=== PATIENT | male | born 1980 | race Caucasian/White ===

== ENCOUNTER 2016-08-18 06:21 | Observation (INO) ==
[2016-08-18] MEDS ORDERED: ALBUTEROL/IPRATROPIUM 3 ML NEB RESP TX STA ×4 (06:43→08:21)
[2016-08-18 07:08] LABS: Basophils % 0.1 % (0.0-0.8); Eosinophils % 0.1 % (0.00-10.9); Hematocrit 46.3 VOL% (42.0-52.0); Hemoglobin 16.4 GM/DL (14.0-18.0); Immature Granulocytes % 0.2 %; Immature Granulocytes Absolute 0.02 #; Lymphocytes % 12.1 % (21.2-54.2); Mean Corpuscular HGB Conc 35.4 GM/DL (32-36); Mean Corpuscular Hemoglobin 32 PG (27-34); Mean Corpuscular Volume 89.4 FL (87-102); Mean Platelet Volume 9.6 FL (9.6-12.0); Neutrophils # 6.2 10*3/uL (1.4-7.4); Neutrophils % 75.5 % (38.7-73.9); Platelet Count 218 T/CUMM (130-400); Red Blood Count 5.18 MC/CUMM (3.8-5.5); Red Cell Distribution Width 12.3 % (9.3-17.3); White Blood Count 8.3 T/CUMM (4-12)
[2016-08-18 07:43] LABS: Albumin 4.3 G/DL (3.4-5.0); Bilirubin,Total 0.7 MG/DL (0.2-1.0); Calcium 9.3 MG/DL (8.5-10.1); Potassium 4.3 MMOL/L (3.5-5.1); Total Protein 7.7 G/DL (6.4-8.3)
--- NOTE | 2016-08-18 07:56 | XRay Report ---
XR chest 2V Date: 08/18/2016 6:43 AM History: Shortness of breath Comparison: None Technique: PA and lateral chest Findings: The heart is small and compressed by the over expanded lungs. Calcified granulomata/nodes with no acute osseous findings. Impression: The lungs are overexpanded which can be seen with deep inspiration, reactive airway disease, or COPD. PROCEDURE INTERPRETED AT [facility] DEPARTMENT OF RADIOLOGY Final Report Signed by: Dr. Renée Leyva
[2016-08-18] MEDS ORDERED: methylPREDNISolone SOD SUC 125 MG/2 ML VIAL IV STA (08:08)
[2016-08-18] MEDS ORDERED: amLODIPine 5 MG TABLET PO STA (08:08)
[2016-08-18] MEDS ORDERED: LEVOFLOXACIN INJ 500 MG in PREMIX 1 EACH IV STA (08:09)
[2016-08-18] MEDS ORDERED: amLODIPine 5 MG TABLET ONE (08:17)
[2016-08-18] MEDS ORDERED: LEVOFLOXACIN INJ 100 ML IV ONE (08:17)
[2016-08-18] MEDS ORDERED: methylPREDNISolone SOD SUC 125 MG/2 ML VIAL ONE (08:18)
--- NOTE | 2016-08-18 10:01 | EKG Report ---
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
--- NOTE | 2016-08-18 10:19 | Emergency Department Note ---
Sharon Camejo Brittany, am scribing for, and in the presence of, Deonte Garrido MD 06:52. Radhika Camejo Phillip K, MD, personally performed the services described in this documentation, ascribed by Mia Herrera in my presence, and it is both accurate and complete . Arrival - Arrival Chief Complaint: Shortness of Breath Stated Complaint: light chest pain,sob,vomiting ED Nursing Triage Note: pt presented to triage ambulatory with c/o SOB and pain with deep breathing x 2-3 hrs. also c/o fever and body aches x 3 days. audible wheezes noted. 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 He states for the past 2-3 hours he has been SOB and has had pain when breathing deep. He reports 3 days ago, he had a cough, chills and a fever. He states the cough is productive of clear/green/ and at times yellow sputum. Pt has no other complaints/pain in the ED at this time. Pt denies a PMHx. Pt denies a surgical hx. Pt denies a family medical Hx. Pt is a current every day smoker, drinks on occasional but denies the use of street drugs. Pt smokes 1.5 PPD. 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) Consistency: constant Severity: moderate Allergies/Adverse Reactions: Allergies Allergy/AdvReac Type Severity Reaction Status Date / Time No Known Allergies Allergy Unverified 08/18/16 06:37 Home Medications: Home Medications Medication Instructions Recorded Confirmed Type No Known Home Medications [No 08/18/16 08/18/16 History Known Home Medications] Review of System - Review of System 12 point system: reviewed and no additional remarkable complaints except as stated - Review of System Constitutional: Present: chills, fever, other (Body aches) Respiratory: Present: cough Cardiovascular: Present: dyspnea on exertion, other ("Pain with deep breathing" , per pt. ) Medical,Surgical,& Family Hx - Social History Smoking Status: Current every day smoker Frequency of Alcohol Use: Occasionally Type of Drug Use: None Exam Vital Signs: Vital Signs Temperature 98.3 F 08/18/16 06:28 Pulse Rate 111 H 08/18/16 07:10 Respiratory Rate 19 08/18/16 07:10 Blood Pressure 151/112 08/18/16 06:28 O2 Sat by Pulse Oximetry 96 08/18/16 07:10 - General General appearance: alert, in no apparent distress - Head Head exam: Present: atraumatic, normocephalic, normal inspection - Eye Eye exam: Present: normal appearance, PERRL, EOMI. Absent: nystagmus, miosis, mydriasis - ENT ENT exam: Present: normal exam, normal oropharynx, mucous membranes moist, TM's normal bilaterally, normal external ear exam - Neck Neck exam: Present: normal inspection, full ROM, trachea midline. Absent: tenderness, meningismus, lymphadenopathy, thyromegaly - Chest Chest inspection: Present: normal inspection, symmetric chest wall rise. Absent : tenderness, rash, abscess - Respiratory Respiratory exam: Present: wheezes (Inspiratory and Expiratory wheezing ). Absent: normal lung sounds bilaterally, rales, respiratory distress, rhonchi, stridor - Cardiovascular Cardiovascular exam: Present: normal rhythm, tachycardia, normal heart sounds. Absent: murmur, rubs, gallop, clicks, JVD - Abdominal Exam Abdominal exam: Present: soft, normal bowel sounds. Absent: distention, tenderness, guarding, rebound, rigidity - Rectal Exam Rectal exam: Present: deferred - Extremities Exam Extremities exam: Present: normal inspection, full ROM, normal capillary refill. Absent: tenderness, pedal edema, joint swelling, calf tenderness - Back Exam Back exam: Present: normal inspection, full ROM. Absent: tenderness, muscle spasm, rashes - Neurological Exam Neurological exam: Present: alert, oriented X3, CN II-XII intact. Absent: motor sensory deficit - Psychiatric Psychiatric exam: Present: normal affect, normal mood. Absent: depressed, agitated, anxious, flat affect, manic - Skin Skin exam: Present: warm, dry, intact, normal color. Absent: rash, cyanosis, diaphoresis, erythema, pallor, mottled Results - Labs CBC & BMP: 08/18/16 07:00 08/18/16 07:00 Lab Results: I have reviewed the patients labs Labs: Laboratory Tests 08/18/16 07:00 WBC 8.3 RBC 5.18 Hgb 16.4 Hct 46.3 MCV 89.4 MCH 32 MCHC 35.4 RDW 12.3 Plt Count 218 MPV 9.6 Neut % (Auto) 75.5 H Lymph % (Auto) 12.1 L [place] % (Auto) 12.0 Eos % (Auto) 0.1 Baso % (Auto) 0.1 Neut # (Auto) 6.2 Lymph # (Auto) 1.0 L [place] # (Auto) 1.0 H Eos # (Auto) 0.0 Baso # (Auto) 0.0 Immature Gran % 0.2 Nucleated RBC % 0.0 Immature Gran # 0.02 Nucleated RBCs # 0.00 Laboratory Tests 08/18/16 08/18/16 07:00 07:00 WBC 8.3 RBC 5.18 Hgb 16.4 Hct 46.3 MCV 89.4 MCH 32 MCHC 35.4 RDW 12.3 Plt Count 218 MPV 9.6 Neut % (Auto) 75.5 H Lymph % (Auto) 12.1 L [place] % (Auto) 12.0 Eos % (Auto) 0.1 Baso % (Auto) 0.1 Neut # (Auto) 6.2 Lymph # (Auto) 1.0 L [place] # (Auto) 1.0 H Eos # (Auto) 0.0 Baso # (Auto) 0.0 Immature Gran % 0.2 Nucleated RBC % 0.0 Immature Gran # 0.02 Nucleated RBCs # 0.00 Sodium 136 Potassium 4.3 Chloride 101 Carbon Dioxide 27 Anion Gap 12.3 BUN 14 Creatinine 1.20 GFR Calculation 123 BUN/Creatinine Ratio 11.00 Glucose 106 Calculated Osmolality 272.0 L Calcium 9.3 Total Bilirubin 0.70 AST 31 ALT 65 H Alkaline Phosphatase 90 Total Protein 7.7 Albumin 4.3 Globulin 3.4 Albumin/Globulin Ratio 1.2 Laboratory Tests 08/18/16 08/18/16 07:00 07:00 WBC 8.3 RBC 5.18 Hgb 16.4 Hct 46.3 MCV 89.4 MCH 32 MCHC 35.4 RDW 12.3 Plt Count 218 MPV 9.6 Neut % (Auto) 75.5 H Lymph % (Auto) 12.1 L [place] % (Auto) 12.0 Eos % (Auto) 0.1 Baso % (Auto) 0.1 Neut # (Auto) 6.2 Lymph # (Auto) 1.0 L [place] # (Auto) 1.0 H Eos # (Auto) 0.0 Baso # (Auto) 0.0 Immature Gran % 0.2 Nucleated RBC % 0.0 Immature Gran # 0.02 Nucleated RBCs # 0.00 Sodium 136 Potassium 4.3 Chloride 101 Carbon Dioxide 27 Anion Gap 12.3 BUN 14 Creatinine 1.20 GFR Calculation 123 BUN/Creatinine Ratio 11.00 Glucose 106 Calculated Osmolality 272.0 L Calcium 9.3 Total Bilirubin 0.70 AST 31 ALT 65 H Alkaline Phosphatase 90 Total Protein 7.7 Albumin 4.3 Globulin 3.4 Albumin/Globulin Ratio 1.2 - EKG EKG results: interpreted by ERMD (Sinus tachycardia) - Diagnostic Findings Procedure: Chest x-ray: report reviewed by me (The lungs are overexpanded which can be seen with deep inspiration, reactive airway disease, or COPD. )
--- NOTE | 2016-08-18 14:12 | Event Note ---
Mr. 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 Patient also has complaints of low-grade fever subjective in nature and muscle aches. Chest x-ray is clear. Labs are unremarkable. Will admit the patient to inpatient, obtain an influenza panel, place the patient on antibiotics and IV steroids. Will obtain a d-dimer to assess for the need for a CT of his chest if greater than 0.[address] obtain a CT of the chest with PE protocol. Will also ask pulmonary to evaluate the patient.
--- NOTE | 2016-08-18 14:27 | Hospitalist History & Physical ---
Assessment and Plan - Time spent with patient Time spent with patient: Greater than 30 minutes (1) Dyspnea Status: Acute Assessment and plan: Patient noted to be short of breath on admission. He was treated with 2 rounds of Solu-Medrol and Levaquin in the ED. Patient continues to have expiratory wheezing. Will admit for observation and continued breathing treatments. Obtain influenza panel and d-dimer. Current Visit: Yes Qualifiers: Dyspnea type: shortness of breath Qualified Code(s): R06.02 - Shortness of breath (2) Chest pain Status: Acute Assessment and plan: Chest pain not reproducible to palpation. Patient reports chest pain is worse on inspiration. This is likely secondary to pulmonary process. Patient has been admitted for observation with breathing treatments and IV antibiotics. Will continue to monitor overnight. 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 Patient states that he began to feel sick Thursday evening with cough productive of yellow and clear sputum. Patient states that he had been drinking water to keep from coughing and attributes to clear sputum to this water. Patient does note he smokes one and a half packs per day and drinks "occasionally" up to a 12 pack of beer at once. Patient states that he does not typically get sick and would not have come to the ER if not for the "sharp pain" in his chest this morning. He rates this pain 7/10 and is nonradiating. He states that he did not take any medications for this pain. He denies headache, blurry vision, palpitations, abdominal pain, nausea or vomiting , numbness or tingling. On admission, patient noted to be wheezing, complaining of chest pain on inspiration, and hypertensive. Lab work reveals: WBC 8.3, hemoglobin 16.4, hematocrit 46.3, sodium 136, potassium 4.3, chloride 101, BUN 14, creatinine 1.20. Chest x-ray was negative for any acute process. Patient was given 2 breathing treatments in the ER with continued wheezing. Given his history of tobaccoism and persistent wheezing, the patient will be admitted to hospital medicine service for observation and further treatment. Case has been discussed with Dr. Mccloud. Patient is a full code. Home meds have been reviewed. Home Medications Medication Instructions Recorded Confirmed Type No Known Home Medications [No 08/18/16 08/18/16 History Known Home Medications] Allergies Allergy/AdvReac Type Severity Reaction Status Date / Time No Known Allergies Allergy Unverified 08/18/16 06:37 Medical,Surgical,& Family Hx - Family History Family History: Reports;: Family Heart Disease (Father has CAD), Family Hypertension - Social History Smoking Status: Current every day smoker Have you smoked in the last 12 months: Yes Time spent discussing smoking cessation with patient: more than 10 minutes Frequency of Alcohol Use: Occasionally Type of Drug Use: None Marital Status: Single Lives With:: Significant Other Functional capacity: independent ambulation - Constitutional Constitutional: Absent: fever(s), frequent falls, headache(s), weakness - EENT Eyes: Absent: blurry vision, loss of vision Ears: Absent: decreased hearing, ear pain Nose, mouth and throat: Absent: headache(s), vertigo - Cardiovascular Cardiovascular: Present: chest pain at rest, dyspnea, dyspnea on exertion. Absent: diaphoresis, edema, palpitations - Respiratory Respiratory: Present: cough (Productive of yellow sputum), dyspnea, wheezing, pain on inspiration. Absent: hemoptysis - Gastrointestinal Gastrointestinal: Present: diarrhea. Absent: abdominal pain, melena, nausea - Genitourinary Genitourinary: Absent: dysuria, flank pain - Musculoskeletal Musculoskeletal: Absent: arthralgias, joint swelling - Neurological Neurological: Absent: abnormal gait, abnormal speech, dizziness, numbness - Psychiatric Psychiatric: Absent: anxiety, depression - Endocrine Endocrine: Absent: cold intolerance, fatigue, heat intolerance - Hematologic/Lymphatic Hematologic/Lymphatic: Absent: easy bleeding, easy bruising Exam - Constitutional Vitals: Period Temp Pulse Resp BP Sys/Schmidt Pulse Ox Last 24 Hr 98.3 F-100.4 F 73-111 16-22 142-156/86-114 94-96 Exam: General appearance: obese, no acute distress - Head Head exam: Present: normocephalic, atraumatic - Eye Eye exam: Present: EOMI. Absent: conjunctival injection, nystagmus Pupils: Present: SAUL, normal accommodation - ENT ENT exam: Present: normal exam, normal external ear exam - Neck Neck exam: Present: normal inspection. Absent: lymphadenopathy, tenderness, thyromegaly - Respiratory Respiratory exam: Present: Expiratory wheezing in left lung. Absent: rales, rhonchi - Cardiovascular Cardiovascular exam: Present: regular rate and rhythm. Absent: carotid bruit, gallop, rubs - GI/Abdominal GI/Abdominal exam: Present: normal bowel sounds. Absent: ascites, distended, mass - Extremities Exam Extremities exam: Present: normal inspection, normal capillary refill. Absent: edema - Back Exam Back exam: Absent: CVA tenderness (L), CVA tenderness (R) - Neurological Exam Neurological exam: Present: alert, oriented X3 - Psychiatric Psychiatric exam: Present: normal affect, normal mood - Skin Skin exam: Present: normal color, warm, dry Results - Labs CBC & BMP: 08/18/16 07:00 08/18/16 07:00 Lab Results: I have reviewed the past 24 hour labs - EKG EKG results: interpreted by JOHNNAD - Diagnostic Findings Procedure: Chest x-ray: image reviewed by me, report reviewed by me
[2016-08-18] MEDS ORDERED: methylPREDNISolone SOD SUC 125 MG/2 ML VIAL IV SCH (15:00)
--- NOTE | 2016-08-18 17:25 | Pulmonology Consult Note ---
Assessment and Plan (1) Acute bronchitis Status: Acute Assessment and plan: Patient has a cough wheezing and pain on inspiration. Chest x-ray is clear. This fits with acute bronchitis. He has not had chronic problems with this. Certainly could have some underlying COPD. Would need to check PFTs once he is over the acute flareup. Agree with corticosteroids Levaquin and bronchodilators. Will reduce steroids. Current Visit: Yes (2) Chest wall pain Status: Acute Assessment and plan: Has pain on inspiration or deep breath or cough and left chest. It is sharp pain. He is tender over the left chest wall. Certainly fits with chest wall pain Current Visit: Yes (3) Tobacco abuse Status: Acute Assessment and plan: Long discussion about the need to stop smoking. He says he has stopped months and started back. Do not know whether he is motivated to stop again. He is at risk for COPD developing acute bronchitis at age 36 that may or may not be related to his smoking. Current Visit: Yes History of Present Illness Chief complaint: Cough wheezing chest pain History of present illness: Mr. 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 He had the onset to 3 days ago cough congestion and shortness of breath. He was wheezing. Coughing up some yellow to white sputum. He started having some pain in the left side of his chest today and came to the emergency room. Pain was sharp and came on with coughing or deep breathing. He has no history of heart disease in the past. He knows of no history of lung problems. He did not have asthma as a child. He thinks he had some fever overnight. Home Medications Medication Instructions Recorded Confirmed Type No Known Home Medications [No 08/18/16 08/18/16 History Known Home Medications] Allergies Allergy/AdvReac Type Severity Reaction Status Date / Time No Known Allergies Allergy Unverified 08/18/16 06:37 12 point system: reviewed and no additional remarkable complaints except as stated - Cardiovascular Cardiovascular: Present: dyspnea on exertion - Respiratory Respiratory: Present: cough, dyspnea, dyspnea on exertion, wheezing, pain on inspiration, change in phlegm color - Gastrointestinal Gastrointestinal: Present: diarrhea Exam (Pulmonay) H&P - Constitutional Vitals: Period Temp Pulse Resp BP Sys/Schmidt Pulse Ox Last 24 Hr 98.3 F-100.4 F 73-111 16-22 138-156/75-114 94-96 Exam: Temperature was 99.3. Vital signs otherwise normal. Pupils react to light. Throat is clear. He has a long black rojo. Neck is supple. Chest reveals expiratory wheezes and rhonchi bilaterally. Heart normal rate rhythm no murmurs. Abdomen soft nontender no masses. Bowel sounds present. Extremities no clubbing cyanosis or edema. Calves nontender. Medical,Surgical,& Family Hx - Medical History HEENT: History of: Ear Problem (left ear, hard of hearing as of last week) Gastrointestinal: History of: GI Problems (stomach cramps and hernia surgery when he was 15) - Family History Family History: Reports;: Family Heart Disease (Father has CAD), Family Hypertension - Social History Smoking Status: Current every day smoker Frequency of Alcohol Use: Occasionally Type of Drug Use: None Results - Labs CBC & BMP: 08/18/16 07:00 08/18/16 07:00 Lab Results: I have reviewed the past 24 hour labs - Diagnostic Findings Procedure: Chest x-ray: image reviewed by me (Lungs clear. There may be some hyperinflation.)
[2016-08-18] MEDS: ALBUTEROL/IPRATROPIUM 3 ML NEB RESP TX SCH (19:18)
--- NOTE | 2016-08-18 19:48 | CT Report ---
CT chest PE study Indication: Shortness of breath. CT CHEST WITH CONTRAST, PE PROTOCOL DLP: 918 mGy*cm. One or more of the following dose reduction techniques was used: Automated exposure control, adjustment of the mA and/or kV according the patient size, or use of iterative reconstruction techniques. Comparison: None Technique: Axial CT images of the chest were obtained during the pulmonary arterial phase of contrast injection. Coronal reconstructions were provided. Omnipaque 350, 80 cc. Findings: No pulmonary artery filling defects to the segmental level. Main pulmonary artery is normal in size. Normal heart size. Aorta is unremarkable. No atheromatous disease shown. No mediastinal, axillary or hilar lymphadenopathy. Lungs are clear. Pleural spaces are clear. Limited views of the upper abdomen are unremarkable. Impression: No evidence of PE. Negative CT chest. Is there d-dimer? PROCEDURE INTERPRETED AT [facility] DEPARTMENT OF RADIOLOGY Final Report Signed by: Kailash Munson M.D.
[2016-08-18] MEDS: methylPREDNISolone SOD SUC 125 MG/2 ML VIAL IV SCH (22:08)
[2016-08-19] MEDS: ALBUTEROL/IPRATROPIUM 3 ML NEB RESP TX SCH ×3 (00:18→13:15)
[2016-08-19] MEDS: methylPREDNISolone SOD SUC 125 MG/2 ML VIAL IV SCH (04:30)
[2016-08-19 07:26] LABS: Basophils % 0.1 % (0.0-0.8); Hematocrit 45.8 VOL% (42.0-52.0); Hemoglobin 15.8 GM/DL (14.0-18.0); Immature Granulocytes % 0.4 %; Immature Granulocytes Absolute 0.08 #; Lymphocytes # 1.1 10*3/uL (1.4-4.0); Lymphocytes % 5.8 % (21.2-54.2); Mean Corpuscular HGB Conc 34.5 GM/DL (32-36); Mean Corpuscular Hemoglobin 31 PG (27-34); Mean Corpuscular Volume 89.3 FL (87-102); Mean Platelet Volume 9.9 FL (9.6-12.0); Monocytes % 5.2 % (1.7-12.7); Neutrophils # 16.3 10*3/uL (1.4-7.4); Neutrophils % 88.5 % (38.7-73.9); Platelet Count 241 T/CUMM (130-400); Red Blood Count 5.13 MC/CUMM (3.8-5.5); Red Cell Distribution Width 12.5 % (9.3-17.3); White Blood Count 18.5 T/CUMM (4-12)
[2016-08-19 07:56] LABS: Calcium 9.3 MG/DL (8.5-10.1); Osmolality,Calculated 280.7 MOS/KG (273-304); Potassium 4.6 MMOL/L (3.5-5.1)
--- NOTE | 2016-08-19 08:18 | Pulmonology Progress Note ---
Pulmonary - PN: Subj Interval history: This 36-year-old white male is a long-term smoker. He came in with acute bronchitis with left-sided chest wall pain. CT for PE protocol was negative. X -ray clear. His lungs are clear today. From my standpoint he could be discharged on oral antibiotics plus prednisone 40 mg daily for 5 days. Once again discussed with him the importance of stopping smoking. Exam (Progress Note) - Constitutional Vitals: Period Temp Pulse Resp BP Sys/Schmidt Pulse Ox Last 24 Hr 98.0 F-99.3 F 73-95 16-20 134-146/72-94 92-99 Exam: Patient's alert and oriented. Vital signs are normal. Pupils react to light. Throat is clear. Neck supple no bruits. Chest is clear. No wheezes. Heart normal rate and rhythm no murmurs. Abdomen soft nontender no masses. Extremities no clubbing cyanosis edema. Calves nontender. Results - Labs CBC & BMP: 08/19/16 07:08 08/19/16 07:08 Lab Results: I have reviewed the past 24 hour labs - Diagnostic Findings Procedure: CT - chest: image reviewed by me (PE protocol within normal limits.) Assessment and Plan (1) Acute bronchitis Status: Acute Assessment and plan: Patient has a cough wheezing and pain on inspiration. Chest x-ray is clear. This fits with acute bronchitis. He has not had chronic problems with this. Certainly could have some underlying COPD. Would need to check PFTs once he is over the acute flareup. Agree with corticosteroids Levaquin and bronchodilators. Will reduce steroids. 08/19/2016 patient is wheeze free. Could change to oral prednisone and antibiotics and discharge. Should have PFTs done in 4-6 weeks. Current Visit: Yes (2) Chest wall pain Status: Acute Assessment and plan: Has pain on inspiration or deep breath or cough and left chest. It is sharp pain. He is tender over the left chest wall. Certainly fits with chest wall pain 08/19/2016 this has resolved. Current Visit: Yes (3) Tobacco abuse Status: Acute Assessment and plan: Long discussion about the need to stop smoking. He says he has stopped months and started back. Do not know whether he is motivated to stop again. He is at risk for COPD developing acute bronchitis at age 36 that may or may not be related to his smoking. 08/19/2016 once again discussed importance of smoking cessation. Current Visit: Yes
--- NOTE | 2016-08-19 08:39 | EKG Report ---
Stationary ECG Study 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
[2016-08-19] MEDS ORDERED: LEVOFLOXACIN INJ 500 MG in PREMIX 1 EACH IV SCH (09:00)
[2016-08-19] MEDS ORDERED: methylPREDNISolone SOD SUC 40 MG/1 ML VIAL IV SCH (09:00)
[2016-08-19 11:50] VITALS: BP 135/69
--- NOTE | 2016-08-19 12:41 | Discharge Summary ---
<MaurizioRussell - Last Filed: 08/19/16 12:35> Hospital Course - Hospital Course Hospital Course: Mr. Madrigal is a 36-year-old white male who was admitted through the [facility] ED on 08/18/2016 with complaints of shortness of breath with onset 3 days prior. Patient was treated with 2 rounds of Solu-Medrol and Levaquin in the emergency room with minimal improvement. He continued to wheeze and was subsequently admitted to the [facility] floor with hospital medicine service. Pulmonology was consulted and concluded that the patient was likely having an acute bronchitis episode. Recommend PFTs once the acute flareup is over. Patient has been counseled extensively on tobacco cessation as this puts him at increased risk for COPD development. Overnight, the patient continued to improve with breathing treatments and steroids. He is now stable and ready for discharge. Pulmonology recommends discharge on oral antibiotics plus prednisone 40 mg daily for 5 days. Diagnosis - Discharge Diagnosis (1) Dyspnea Status: Acute (2) Chest pain Status: Acute Specialty Discharge - Follow Up or Referrals Follow up with: Eros Claudio MD [Physician] - 2 Weeks (outpt PFTs) , PCP [Other] - 2 Weeks Discharge Plan - Discharge Data Disposition: Disch To Home/Self Care - Discharge Medications New Levofloxacin Tab [Levaquin Tab] 500 mg PO DAILY #6 tablet predniSONE TAB [PredniSONE] 40 mg PO DAILY #10 tablet - Follow Up or Referral - Forms/Instructions Forms: Acute Care Work/School Release Instructions: Prednisone (By mouth), Levofloxacin (By mouth), Acute Bronchitis (DC) Exam - Constitutional Vitals: Period Temp Pulse Resp BP Sys/Schmidt Pulse Ox Last 24 Hr 98.0 F-99.1 F 74-111 16-20 134-146/69-94 92-99 Discharge Results Procedures and tests throughout hospitalization: Pending Orders 08/18/16 13:31 Influenza A & B Antigen Panel Routine Labs on day of discharge: Labs from last 24 hours 08/19/16 08/19/16 08/18/16 07:08 07:08 17:38 WBC 18.5 H D RBC 5.13 Hgb 15.8 Hct 45.8 MCV 89.3 MCH 31 MCHC 34.5 RDW 12.5 Plt Count 241 MPV 9.9 Neut % (Auto) 88.5 H Lymph % (Auto) 5.8 L [place] % (Auto) 5.2 Eos % (Auto) 0.0 Baso % (Auto) 0.1 Neut # (Auto) 16.3 H Lymph # (Auto) 1.1 L [place] # (Auto) 1.0 H Eos # (Auto) 0.0 Baso # (Auto) 0.0 Immature Gran % 0.4 Nucleated RBC % 0.0 Immature Gran # 0.08 Nucleated RBCs # 0.00 D-Dimer, Quantitative 0.6 Sodium 138 Potassium 4.6 Chloride 102 Carbon Dioxide 29 Anion Gap 11.6 BUN 18 Creatinine 1.20 GFR Calculation 122 BUN/Creatinine Ratio 15.00 Glucose 166 H Calculated Osmolality 280.7 Calcium 9.3 DS: Provider Date of admission: 08/18/16 11:08 Primary care physician: Nonstaff Physician Attending physician on admission: Jennie Mccloud MD Consults: 08/18/16 14:01 Consult to Physician [CONS] Routine Comment: wheezing, SOB Consulting Provider: Eros Claudio Consult to Specialist Group: Pulmonology When should Consulting Provider be notified: Now Person Notified: justin Date Notified: 08/18/16 Time Notified: 14:53 Discharging clinician: Russell BUCIO Expected date of discharge: 08/19/16 <Cherelle Orozco - Last Filed: 08/19/16 13:35> Hospital Course - Time spent with patient Time with patient DS: Greater than 30 minutes (35 minutes) Diagnosis - Discharge Diagnosis (1) Acute bronchitis Status: Acute (2) Chest wall pain Status: Resolved (3) Tobacco abuse Status: Chronic Discharge Plan - Discharge Data Condition at Discharge: Stable Discharge Diet: advance to your usual diet Activity: other (avoid tobacco use) Contact your physician if you experience:: fever over 101, Difficulty voiding, Redness or swelling, Nausea/Vomiting, Shortness of breath, Bleeding, pain uncontrolled by pain medications Exam - Constitutional Exam: A and Ox 3 RRR no M CTAB nonlabored Soft, NT, ND, +BS Warm no c/c/e
== END 2016-08-19 13:42 | disposition home or self-care (01) ==
LOC: N.ED 06:21 → INTOOBSV 11:08 → SUATTDRO 11:08 → N.EDINP 11:08 → N.2E 13:48
PROVIDERS: ADMIT Internal Medicine; ATTEND Pediatrics